=== PATIENT | male | born 1985 | race Caucasian/White ===

== ENCOUNTER 2017-02-12 08:27 | Emergency (ER) | payer MEDICAID ==
[2017-02-12 08:36] VITALS: O2SAT 98
[2017-02-12 08:37] VITALS: TEMP 97.5
[2017-02-12] MEDS ORDERED: Naproxen 550 mg Tab PO STA (08:57)
[2017-02-12] MEDS ORDERED: Naproxen 550 mg Tab PO ONE (09:05)
--- NOTE | 2017-02-12 09:09 | C.PDOC ---
History Of Present Illness 31 y/o male presents to the ED with complaints of left shoulder pain x 3-4 days , worse with movement. Denies changes in sensation, SOB, chest pain or any other complaints. Denies direct trauma. Took tylenol and advil with transient relief, none taken today. Time Seen by Provider: 02/12/17 08:41 Chief Complaint (Nursing): Upper Extremity Problem/Injury History Per: Patient History/Exam Limitations: no limitations Onset/Duration Of Symptoms: Days Current Symptoms Are (Timing): Still Present Quality: "Pain" Severity: Moderate Exacerbating Factor(s): Movement Recent travel outside of the [place]: No Past Medical History Reviewed: Historical Data, Nursing Documentation, Vital Signs Vital Signs: Last Vital Signs Temp 97.5 F L 02/12/17 08:36 Pulse 90 02/12/17 09:38 Resp 18 02/12/17 09:38 BP 121/79 02/12/17 09:38 Pulse Ox 98 02/12/17 09:38 - Medical History PMH: HTN Family History: States: Unknown Family Hx - Social History Hx Alcohol Use: No Hx Substance Use: No - Immunization History Hx Influenza Vaccination: Yes Review Of Systems Except As Marked, All Systems Reviewed And Found Negative. Constitutional: Negative for: Fever Cardiovascular: Negative for: Chest Pain Respiratory: Negative for: Shortness of Breath Musculoskeletal: Positive for: Shoulder Pain (left) Neurological: Negative for: Weakness, Numbness Physical Exam - Physical Exam Appears: Non-toxic, No Acute Distress Skin: Warm, Dry, No Rash Head: Atraumatic, Normacephalic Eye(s): bilateral: Normal Inspection, EOMI Nose: Normal Oral Mucosa: Moist Neck: Normal ROM, No Midline Cervical Tenderness, No Step Off Deformity, Supple Chest: Symmetrical, No Tenderness Cardiovascular: Rhythm Regular, No Murmur Respiratory: Normal Breath Sounds, No Rales, No Rhonchi, No Wheezing Gastrointestinal/Abdominal: Normal Exam, Soft, No Tenderness Back: No CVA Tenderness, No Vertebral Tenderness Extremity: Normal ROM (pain exacerbated past 90 degrees), Tenderness (L trapezius), Capillary Refill (<2 sec), No Deformity, No Swelling Extremity: Bilateral: Atraumatic Pulses: Left Radial: Normal, Right Radial: Normal Neurological/Psych: Oriented x3, Normal Speech, Normal Motor (5/5), Normal Sensation ED Course And Treatment O2 Sat by Pulse Oximetry: 98 (room air) Pulse Ox Interpretation: Normal - Other Rad XR shoulder X-Ray: Viewed By Me, Read By Radiologist Interpretation: Left shoulder three views. History: Shoulder pain. Comparison : None available. Findings: No evidence for acute displaced fracture or dislocation. Glenohumeral and acromioclavicular joint spaces are preserved. Impression: Negative acute. If pain persists, consider MRI. Progress Note: Plan: naprosyn, XR left shoulder. Instructed pt RICE and followup wtih ortho in 1-2 days. Disposition - Disposition Referrals: Froylan Singh MD [Staff Provider] - Disposition: HOME/ ROUTINE Disposition Time: 09:30 Condition: STABLE Additional Instructions: Follow up with your primary medical doctor or clinic in 2-5 days for further evaluation. Take medications as prescribed. Return to the emergency department at any time if symptoms persist or worsen. 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 - Scribe Statement The provider has reviewed the documentation as recorded by the Jade Draper All medical record entries made by the Jade were at my direction and personally dictated by me. I have reviewed the chart and agree that the record accurately reflects my personal performance of the history, physical exam, medical decision making, and the department course for this patient. I have also personally directed, reviewed, and agree with the discharge instructions and disposition.
--- NOTE | 2017-02-12 09:22 | RAD ---
Left shoulder three views History: Shoulder pain. Comparison: None available. Findings: No evidence for acute displaced fracture or dislocation. Glenohumeral and acromioclavicular joint spaces are preserved. Impression: Negative acute. If pain persists, consider MRI.
[2017-02-12 09:40] VITALS: BP 121/79; PULSE 90; RESP 18
== END 2017-02-12 09:47 | disposition home or self-care (01) ==
LOC: C.ER 08:27
DX: M25.512 Pain in left shoulder (principal)